=== PATIENT | female | born 1980 | race Caucasian/White ===

== ENCOUNTER 2017-02-13 17:56 | Observation (INO) | payer BC ==
[~2017-02-13 17:56] MED LIST: CELEXA40 M2 PO; SOMA; XANAX0.25 M1 PO
[2017-02-13 19:03] LABS: ABG CO2 ARTERIAL 25 mmol/L (21-27); ARTERIAL BLD GAS O2 SATURATION 97 % (95-98); ARTERIAL BLOOD GAS PCO2 36 mmHg (32-45); ARTERIAL PO2 83 mmHg (70-100); BICARBONATE 24 mmol/L (21-28); BLOOD GAS BASE EXCESS 1 mM/L (-/+3); PH 7.45 Units (7.35-7.45)
[2017-02-13 19:04] LABS: CARBOXYHGB(CARBON MONOXIDE) 1.1 % (0-1.4)
[2017-02-13 19:17] LABS: BASO % 0.3 % (0-2); EOS % 0.7 % (0-7); EOSINOPHIL ABSOLUTE COUNT 0.1 tho/cmm (0.0-0.7); HGB-HEMOGLOBIN 14.4 gm/dl (12.0-15.5); IMMATURE GRANULOCYTES ABSOLUTE 0.02 tho/cmm (0-0.03); IMMATURE GRANULOCYTES PERCENT 0.2 % (0-0.3); LYMPH % 19.8 % (20-45); LYMPH ABSOLUTE COUNT 2.1 tho/cmm (0.8-4.5); MCH (MEAN CORPUSCULAR HGB) 30.5 pg (28.0-32.0); MCHC MEAN CORPUSCULAR HGB CONC 34.3 % (32.0-36.0); MEAN PLATELET VOLUME 9.3 cmc (9.4-12.4); MONO % 6.6 % (0-12); MONOCYTE ABSOLUTE COUNT 0.7 tho/cmm (0.0-1.2); NEUTROPHIL ABSOLUTE COUNT 7.6 tho/cmm (1.6-8.0); NEUTROPHIL-AUTOMATED 7.6 tho/cmm (1.6-8.0); NEUTROPHILS % 72.4 % (40-80); PLATELET COUNT 302 tho/cmm (150-450); RED BLOOD COUNT 4.72 mil/cmm (4.00-5.20); RED CELL DISTRIBUTION WIDTH 12.3 % (12.4-16.4); WHITE BLOOD COUNT 10.5 tho/cmm (4.0-10.0)
[2017-02-13 19:25] LABS: ANION GAP 14 mmol/L (0-20); BLOOD UREA NITROGEN 14 mg/dl (6-24); CALCIUM 9.4 mg/dl (8.5-10.5); CARBON DIOXIDE-VENOUS 27 mmol/L (22-32); CHLORIDE 105 mmol/l (96-110); CREATININE 0.96 mg/dl (0.50-1.10); GLUCOSE 96 mg/dL (70-110); POTASSIUM 4.2 mmol/L (3.7-5.1); SODIUM 142 mmol/L (135-145); eGFR VALUE FOR BLACK 89 mL/Min
[2017-02-13] MEDS ORDERED: CYCLOBENZAPRINE5 M1 PO (22:44)
[2017-02-13] MEDS ORDERED: TRAZODONE HCL50 M1 PO (22:44)
[2017-02-13] MEDS ORDERED: PROTONIX40 M2 PO (22:44)
== END 2017-02-14 14:20 ==
LOC: BRNOP 17:56 → BURN 18:40
PROVIDERS: ADMIT Surgery
DX: T20.10XA Burn of first degree of head, face, and neck, unspecified site, initial encounter (principal); T22.1 Burn of first degree of shoulder and upper limb, except wrist and hand; F41.9 Anxiety disorder, unspecified; J45.909 Unspecified asthma, uncomplicated; Z88.1 Allergy status to other antibiotic agents; Z88.2 Allergy status to sulfonamides; Z87.891 Personal history of nicotine dependence; X00.0XXA Exposure to flames in uncontrolled fire in building or structure, initial encounter
CPT/HCPCS: G0378; G0379